=== PATIENT | male | born 1980 | race Caucasian/White ===

== ENCOUNTER 2017-06-20 20:35 | Emergency (ER) | payer OTHER ==
[~2017-06-20] VITALS: Ht 172.7 cm; Wt 82.3 kg
[2017-06-21 00:18] VITALS: BP 130/89
--- NOTE | 2017-06-21 14:52 | REP ---
Clinical: Trauma. Technique: AP, lateral, bilateral oblique views of the right fifth digit. Findings: Comminuted fracture of the fifth metacarpal bone with overlying soft tissue swelling. No other fracture dislocation. Impression: Comminuted fracture of the fifth metacarpal bone. Signed by Satya Ojeda MD 06/21/2017 02:44 P
== END 2017-06-21 00:19 | disposition home or self-care (01) ==
LOC: M ED 20:35
DX: S62.306A Unspecified fracture of fifth metacarpal bone, right hand, initial encounter for closed fracture (principal); Z72.0 Tobacco use; W01.198A Fall on same level from slipping, tripping and stumbling with subsequent striking against other object, initial encounter; Y92.099 Unspecified place in other non-institutional residence as the place of occurrence of the external cause; Y93.01 Activity, walking, marching and hiking; Y99.9 Unspecified external cause status

== ENCOUNTER 2017-07-20 15:18 | Day surgery (SDC) | payer OTHER ==
[~2017-07-20] VITALS: Ht 172.7 cm; Wt 83.2 kg
--- NOTE | 2017-07-20 18:02 | REP ---
Scrotal sonography: History: Trauma to the left testis 4 days ago in a fall on the log. Persistent pain. Findings: High-resolution bilateral scrotal sonography demonstrates a heterogeneous mixed echogenicity area of subtle deformity and swelling in the lower pole of the left testis. This area measures 2.6 x 0.9 x 1.8 cm. The appearance on sagittal images suggest the possibility of localized at rupture of the tunica albuginea, herniation of testicular parenchyma through the defect. The left testis measures 4.5 x 2.2 x 2.9 cm. Right testicular dimensions are 4.4 x 2.3 x 2.7 cm. Epididymi are normal in size. There is a 4 mm right epididymal cyst and a 5 mm right epididymal cyst. Testicular Doppler flow is normal bilaterally with resistive indices 0.57 and 0.56 on the right and left. No significant hydrocele collection. Impression: Findings suggestive of lower pole rupture left testis with hematoma and a defect in the tunica with herniation of testicular parenchyma. Signed by Sherman Varma MD 07/23/2017 06:48 P
[2017-07-20] MEDS ORDERED: ACET1TAB17 PO (18:34)
[2017-07-20] MEDS ORDERED: NICODIS TD (18:34)
[2017-07-20] MEDS: NS 1,000 ML IV SCH ×2 (18:44→21:59)
[2017-07-20 18:51] LABS: MEAN CORPUSCULAR HEMOGLOBIN 31.3 pg (27.0-33.0); MEAN CORPUSCULAR HGB CONC 34.8 g/dl (32.0-36.5); MEAN CORPUSCULAR VOLUME 89.8 fl (80.0-96.0); PLATELET COUNT, AUTOMATED 293 10^3/uL (150-450); RED CELL DISTRIBUTION WIDTH 12.2 % (11.5-14.5); WHITE BLOOD COUNT 13.6 10^3/uL (4.0-10.0)
[2017-07-20] MEDS ORDERED: BUPIVACAINE HCL 0.25% 30 ML VIAL As Ordered ONE (18:59)
[2017-07-20 19:10] LABS: ANION GAP 7 MEQ/L (8-16); BLOOD UREA NITROGEN 14 MG/DL (7-18); CALCIUM LEVEL 9.2 MG/DL (8.5-10.1); CARBON DIOXIDE LEVEL 31 MEQ/L (21-32); CHLORIDE LEVEL 103 MEQ/L (98-107); CREATININE FOR GFR 0.95 MG/DL (0.70-1.30); GLOMERULAR FILTRATION RATE > 60.0 (>60); GLUCOSE, FASTING 98 MG/DL (70-105); POTASSIUM SERUM 4.1 MEQ/L (3.5-5.1); SODIUM LEVEL 141 MEQ/L (136-145)
[2017-07-20] MEDS ORDERED: ceFAZolin 1GM INJ (J0690) As Ordered ONE (19:35)
[2017-07-20] MEDS ORDERED: PROPOFOL 200 MG/20 ML VIAL As Ordered ONE (19:55)
[2017-07-20] MEDS ORDERED: LIDOCAINE 2% INJ 100 MG/5 ML SDV (FOR ANES.) As Ordered ONE (19:55)
[2017-07-20] MEDS ORDERED: fentaNYL 250 MCG/5 ML INJECTION (J3010) As Ordered ONE (19:55)
[2017-07-20] MEDS ORDERED: MIDAZOLAM INJ 2 MG/2 ML VIAL (J2250) As Ordered ONE (19:55)
[2017-07-20] MEDS ORDERED: SUCCINYLCHOLINE 100 MG/5 ML SYRINGE (J0330) As Ordered ONE (19:55)
[2017-07-20] MEDS ORDERED: METOCLOPRAMIDE INJ 10MG/2ML VIAL (J2765) As Ordered ONE (19:55)
[2017-07-20] MEDS ORDERED: ROCURONIUM BROMIDE 50 MG/5 ML VIAL/SYRINGE As Ordered ONE (19:55)
[2017-07-20] MEDS ORDERED: NEOSTIGMINE 10 MG/10 ML VIAL (J2710) As Ordered ONE (20:11)
[2017-07-20] MEDS ORDERED: GLYCOPYRROLATE INJ 0.2 MG/ML 2 ML VIAL As Ordered ONE (20:11)
[2017-07-20] MEDS ORDERED: BACITRACIN PWD 50,000 UNITS VIAL As Ordered ONE (20:18)
[2017-07-20] MEDS ORDERED: LIDOCAINE 2% MDV 20 ML VIAL As Ordered ONE (20:25)
[2017-07-20] MEDS ORDERED: MEPERIDINE INJ 25 MG/ML VIAL (J2175) As Ordered ONE (20:51)
[2017-07-20] MEDS: MEPERIDINE INJ 25 MG/ML VIAL (J2175) IV PRN ×2 (20:52→20:57)
[2017-07-20] MEDS ORDERED: METOCLOPRAMIDE INJ 10MG/2ML VIAL (J2765) IV PRN (21:00)
[2017-07-20] MEDS ORDERED: MORPHINE 2 MG/ML 1ML SYRINGE IV PRN ×3 (21:00→23:45)
[2017-07-20] MEDS ORDERED: PERCOCET 5MG/325MG TAB PO PRN (21:00)
[2017-07-20] MEDS ORDERED: ONDANSETRON 4MG/2ML VIAL (J2405) IV PRN (21:00)
[2017-07-20] MEDS ORDERED: fentaNYL 100 MCG/2 ML INJECTION (J3010) IV PRN (21:00)
[2017-07-20] MEDS ORDERED: LR 1,000 ML IV SCH (21:00)
[2017-07-20 21:45] VITALS: BP 145/87
[2017-07-20 22:15] VITALS: BP 141/91
[2017-07-20 22:45] VITALS: BP 137/84
[2017-07-20 23:45] VITALS: BP 126/82
[2017-07-20] MEDS ORDERED: PERCOCET 5MG/325MG TAB PO ONE (23:45)
[2017-07-21] VITALS: BP 125/73
[2017-07-21 01:00] VITALS: BP 125/73
[2017-07-21 02:00] VITALS: BP 118/56
[2017-07-21 04:00] VITALS: BP 118/85
[2017-07-21] MEDS ORDERED: CIPROFLOXACIN 500 MG TAB PO SCH (06:00)
[2017-07-21] MEDS: PERCOCET 5MG/325MG TAB PO PRN ×2 (06:39→10:43)
[2017-07-21 08:00] VITALS: BP 132/75
[2017-07-21] MEDS ORDERED: OXYC1TAB23 PO (09:59)
[2017-07-21] MEDS ORDERED: CIPR-249 PO (09:59)
--- NOTE | 2017-07-21 16:05 | CR ---
DATE OF CONSULTATION: 07/20/2017 REASON FOR CONSULTATION: Ruptured left testicle HISTORY OF PRESENT ILLNESS: The patient is a 36-year-old gentleman who came through the emergency room with a 4-day history of severe left testicular pain. He was fishing, and he was straddling a tree, but he fell and had a straddle injury, injuring both testicles, but the left testicle continued to hurt. Originally the testicles were reportedly very bruised and purple looking. A scrotal ultrasound was done from the emergency room, and this clearly showed lower pole rupture of the left testicle with a hematoma and a defect in the tunica with herniation of testicular parenchyma. The right testicle was normal in size, and there was a 4 mm right epididymal cyst and a 5 mm right epididymal cyst. There was normal bilateral testicular Doppler flow on both sides. The patient does have a history of polycystic disease, which was diagnosed when he was 15 years of age. He is not followed often for this any longer. He says they followed it for years, and there was no real change in his cysts. He denies any history of gross hematuria, and he has had no difficulty urinating. He has no irritative or obstructive voiding symptoms. PAST MEDICAL HISTORY: Denies. PAST SURGICAL HISTORY: Double hernia repair at the age of 1. MEDICATIONS: Nicoderm patch [id number]. ALLERGIES: SULFA-BASED DRUGS cause a rash. SOCIAL HISTORY: He is . He has four children of his own and five with a second marriage. He smokes a half a pack of cigarettes a day, and he drinks two to three beers on weekend nights. FAMILY HISTORY: Noncontributory. PHYSICAL EXAMINATION: This a well-developed, well-nourished gentleman lying in a hospital bed in no apparent respiratory distress. He is alert and oriented times three. His maximal temperature is 99.3. His pulse is 93. His blood pressure is 134/82 with a respiratory rate of 18. His eyes are pupils equal, round, and reactive to light (PERRL) and extraocular muscles intact (EOMI). His neck is supple. He has no significant supraclavicular or cervical adenopathy. His heart has a regular rate and rhythm. His lungs are clear to auscultation and percussion. He has no costovertebral angle (CVA) tenderness. His abdomen is soft and nontender. On testicular exam, the scrotal sac actually appears quite normal without very significant swelling, hematoma, or erythema. On exam, though, the left testicle is extremely tender to touch, and one can feel the rupture in the lower pole. The right testicle feels completely normal. His extremities show no cyanosis, clubbing, or edema. LABORATORY DATA: His BUN is 14, and his creatinine is normal at 0.95. His white blood count is elevated at 13.6, and his hemoglobin and hematocrit are 15.7/45.1. DISCUSSION: I discussed these findings at length with the patient and his today, and it was decided to bring the patient emergently to the operating room. We discussed two case scenarios. The first was possibly debriding the area that was ruptured from the testicle and then trying to close the tunica and save part of the testicle. He understands, though, that this carries a much higher risk of postprocedural infection and bleeding, which may require further surgical management. The other option was if we need to debride too much or are unable to salvage the testicle, that we will perform a left orchiectomy. We discussed that usually having a unilateral testicle is enough for both testosterone production and also if he wants to have more children in the future. He was interested in a testicular prosthesis, but unfortunately, there are none available in the hospital at this time, so that would need to be done at a later date if we did end up doing an orchiectomy. At this point, all of his questions were answered and informed consent was obtained in both verbal and written form. We discussed the major risks of the procedure, which included, but were not limited to, the risks of general anesthesia, reactions to medication, bleeding, infection, and continued pain. IMPRESSION: 1. Left testicular rupture after a fall 4 days ago. 2. History of polycystic kidney disease with a normal BUN and creatinine. PLAN: The patient to go emergently to the operating room for a left scrotal exploration, possible left testicular debridement and repair, versus a left orchiectomy.
--- NOTE | 2017-07-22 12:58 | RO ---
DATE OF PROCEDURE: 07/20/2017 PREPROCEDURE DIAGNOSIS: Ruptured left cystic left testicle. POSTOPERATIVE DIAGNOSIS: Ruptured left cystic left testicle. PROCEDURE: Left scrotal exploration with testicular debridement. SURGEON: Dr. Steffanie Rdz. POLE SETTER: ANESTHESIA: General. MEDICATIONS: Ancef 2 grams preoperatively. DRAINS: 1 inch Shaquille. SPECIMEN: Testicular tissue. INDICATIONS FOR PROCEDURE: The patient is a 36-year-old gentleman who was fishing and he slipped and had a straddle injury on a log hurting mostly his left testicle. The pain continued to be extremely severe so he came to the emergency room. A scrotal ultrasound was done, which showed a left testicular rupture of the lower pole. After discussing all different options, alternatives, risks, and benefits it was decided to bring the patient to the operating room for a scrotal exploration with possible debridement and repair versus orchiectomy depending on the findings. Informed consent was obtained in both verbal and written form. He understood clearly that if repair was done that he could continue to have severe pain, possibility of infection, and risk of hematoma postoperatively, all which could require another trip to the operating room in the future. His feeling was he would prefer to have his testicles spared if possible. He was also interested in a testicular implant if we had to do an orchiectomy, but unfortunately there was no implant available. DESCRIPTION OF PROCEDURE: The patient was brought into the operating room. Sequential compression devices were in place and preoperative antibiotics have been given. General anesthesia was induced. He was in the supine position and he was prepped and draped in the usual fashion. Next, an incision was made over the left hemiscrotum, through dartos fascia, and then through the tunica. Underneath the tunica there was some free blood and fluid and the lower pole of the testicle had a complete rupture of the tunica albuginea with testicular tissue protruding. At this point, I was able to debride the extruded testicular tissue and the rest of the testicle actually looked quite normal. I was unable to bring the tunica back together again but there was no continuous bleeding. There was a hematoma, which was drained and hemostasis was obtained using a Bovie and a few sutures. At this point, copious antibiotic irrigation was done and the testicle was placed back in its sac in its normal position with a dependent Shaquille 1 inch drain. The tunica vaginalis was then closed using a #2-0 chromic suture and then dartos fascia was closed. The skin was also closed using #2-0 chromic suture. A block was done of the left scrotum using 10 mL of 1% lidocaine. The patient tolerated the procedure well and was returned to the recovery room in stable condition.
== END 2017-07-21 11:00 | disposition home or self-care (01) ==
LOC: M ED 15:18 → M OROP 18:37 → M PED 21:40 → M OROP 07-21 11:00
PROVIDERS: ATTEND Specialist
DX: N44.2 Benign cyst of testis (principal); Z88.2 Allergy status to sulfonamides; Z72.0 Tobacco use
CPT/HCPCS: 54700; 76870; 80048; 85027; 85610; 88305; 93976; 96374; 96376; 99284; J0330; J0690; J2175; J2250; J2710; J2765; J3010

== ENCOUNTER → 2017-08-23 | Outpatient (CLI) | payer OTHER ==
[~2017-08-23] MED LIST: ACET1TAB17 PO; CIPR-249 PO; NICODIS TD; OXYC1TAB23 PO
--- NOTE | 2017-08-23 16:50 | REP ---
SCROTAL ULTRASOUND: Real-time sonographic evaluation of the scrotum and contents performed and compared to prior study of 07/20/2017. Right testicle measures 4.7 x 2.2 x 2.9 cm and left testicle 4.0 x 2.2 x 2.9 cm. There is blood flow seen in each testicle with duplex Doppler evaluation, with no torsion, RI right testicle 0.64 and left testicle 0.57. A couple of cysts are seen in the head of each epididymis, the largest on the right is 5 mm in diameter and the largest on the left demonstrates internal septations measuring 7 mm maximally. Both testicles are homogeneous. There is no evidence of intratesticular hematoma with resolution of the previously noted left testicular hematoma. A couple of tiny calcifications are seen in the left testicle. Left epididymis demonstrates some enlargement in the region of the tail without significant increased blood flow, which may represent resolving posttraumatic change. IMPRESSION: Previously noted left testicular hematoma appears to have resolved with no intratesticular abnormality at this time. Mild enlargement of the tail of the left epididymis may represent resolving posttraumatic change. Small cysts in the head of each epididymis. Signed by Govind Black MD 08/24/2017 04:54 P
== END ==
LOC: M RAD 14:27
PROVIDERS: ATTEND Specialist
DX: S39.94XD Unspecified injury of external genitals, subsequent encounter (principal); X58.XXXD Exposure to other specified factors, subsequent encounter; Y99.8 Other external cause status

== ENCOUNTER 2017-09-07 04:16 | Emergency (ER) | payer OTHER ==
[2017-09-07] MEDS: ONDANSETRON 4 MG ORAL DISINTEGRATING TAB (S0181) PO (04:44)
[2017-09-07] MEDS: MORPHINE 4 MG/ML 1ML SYRINGE SC (04:44)
[2017-09-07] MEDS: NORCO 5/325MG TABLET (BULK FOR ED) PO (07:15)
== END 2017-09-07 07:19 | disposition home or self-care (01) ==
LOC: M ED 04:16
DX: S82.844A Nondisplaced bimalleolar fracture of right lower leg, initial encounter for closed fracture (principal); W00.0XXA Fall on same level due to ice and snow, initial encounter; Y92.018 Other place in single-family (private) house as the place of occurrence of the external cause; Y93.89 Activity, other specified; Y99.8 Other external cause status; Z88.1 Allergy status to other antibiotic agents; Z88.2 Allergy status to sulfonamides
CPT/HCPCS: 73590

== ENCOUNTER 2017-09-12 08:45 | Day surgery (SDC) | payer OTHER ==
[2017-09-12] MEDS ORDERED: EPINEPHrine INJ 1 MG/ML 1ML AMP (08:46)
[2017-09-12] MEDS ORDERED: ROPIvacaine 0.5% 30 ML INJECTION (J2795 PER 1MG) (08:46)
[2017-09-12] MEDS: LR 1,000 ML IV (09:39)
[2017-09-12] MEDS ORDERED: MIDAZOLAM INJ 2 MG/2 ML VIAL (J2250) As Ordered ×3 (09:45→10:27)
[2017-09-12] MEDS ORDERED: fentaNYL 100 MCG/2 ML INJECTION (J3010) As Ordered (09:45)
[2017-09-12] MEDS: MIDAZOLAM INJ 2 MG/2 ML VIAL (J2250) IV (10:03)
[2017-09-12] MEDS: fentaNYL 100 MCG/2 ML INJECTION (J3010) IV ×3 (10:03→12:37)
[2017-09-12] MEDS ORDERED: fentaNYL 250 MCG/5 ML INJECTION (J3010) As Ordered (10:27)
[2017-09-12] MEDS ORDERED: PROPOFOL 200 MG/20 ML VIAL As Ordered ×2 (10:27→11:11)
[2017-09-12] MEDS ORDERED: LIDOCAINE 2% INJ 100 MG/5 ML SDV (FOR ANES.) As Ordered (10:27)
[2017-09-12] MEDS: ceFAZolin 1GM INJ (J0690 PER 500MG) As Ordered (11:05)
[2017-09-12] MEDS ORDERED: KETOROLAC 60 MG/2 ML VIAL (J1885) As Ordered (11:12)
[2017-09-12] MEDS ORDERED: ONDANSETRON 4MG/2ML VIAL (J2405) As Ordered (11:12)
[2017-09-12] MEDS ORDERED: dexameTHASONE 4 MG/ML 1ML VIAL (J1100) As Ordered (11:12)
[2017-09-12] MEDS ORDERED: MEPERIDINE INJ 25 MG/ML VIAL (J2175) As Ordered (11:57)
[2017-09-12] MEDS: MEPERIDINE INJ 25 MG/ML VIAL (J2175) IV ×2 (12:02→12:07)
[2017-09-12] MEDS ORDERED: ONDANSETRON 4MG/2ML VIAL (J2405) IV (12:30)
[2017-09-12] MEDS ORDERED: MORPHINE 10 MG/ML 1ML VIAL IV (12:30)
[2017-09-12] MEDS ORDERED: NORCO, ANEXSIA 5/325MG TABLET (HYDROcodone/ACETAMINOPHEN) PO ×2 (12:30)
[2017-09-12] MEDS ORDERED: MORPHINE 4 MG/ML 1ML SYRINGE IV (12:30)
[2017-09-12] MEDS ORDERED: LR 1,000 ML IV ×2 (12:30)
[2017-09-12] MEDS: PERCOCET 5MG/325MG TAB PO (12:41)
== END 2017-09-12 13:50 | disposition home or self-care (01) ==
LOC: M SDC 08:45
DX: S82.841A Displaced bimalleolar fracture of right lower leg, initial encounter for closed fracture (principal); X58.XXXA Exposure to other specified factors, initial encounter; Y92.89 Other specified places as the place of occurrence of the external cause; Y93.89 Activity, other specified; Y99.8 Other external cause status; K59.00 Constipation, unspecified; K21.9 Gastro-esophageal reflux disease without esophagitis; M12.9 Arthropathy, unspecified; F41.9 Anxiety disorder, unspecified; F43.10 Post-traumatic stress disorder, unspecified; Q61.3 Polycystic kidney, unspecified; Z88.2 Allergy status to sulfonamides; Z86.14 Personal history of Methicillin resistant Staphylococcus aureus infection; Z72.0 Tobacco use
CPT/HCPCS: 27814

== ENCOUNTER 2017-09-23 00:05 | Emergency (ER) | payer OTHER ==
[2017-09-23 00:39] LABS: HEMATOCRIT 40.2 % (42.0-52.0); HEMOGLOBIN 13.8 g/dl (14.0-18.0); MEAN CORPUSCULAR HEMOGLOBIN 31.7 pg (27.0-33.0); MEAN CORPUSCULAR HGB CONC 34.3 g/dl (32.0-36.5); MEAN CORPUSCULAR VOLUME 92.2 fl (80.0-96.0); PLATELET COUNT, AUTOMATED 319 10^3/uL (150-450); RED BLOOD COUNT 4.36 10^6/uL (4.30-6.10); WHITE BLOOD COUNT 12.7 10^3/uL (4.0-10.0)
[2017-09-23] MEDS: NICOTINE 21MG/24HR 1 EA TRANSDERMAL TD (00:55)
[2017-09-23 01:10] LABS: ACETAMINOPHEN LEVEL 44.8 UG/ML (10.0-30.0); ALBUMIN 3.6 GM/DL (3.2-5.2); ALBUMIN/GLOBULIN RATIO 1.16 (1.00-1.93); ALKALINE PHOSPHATASE 96 U/L (45-117); ALT/SGPT 30 U/L (12-78); ANION GAP 11 MEQ/L (8-16); AST/SGOT 15 U/L (7-37); BILIRUBIN,DIRECT < 0.1 MG/DL (0.0-0.2); BILIRUBIN,TOTAL 0.3 MG/DL (0.2-1.0); BLOOD UREA NITROGEN 11 MG/DL (7-18); CALCIUM LEVEL 8.1 MG/DL (8.5-10.1); CARBON DIOXIDE LEVEL 25 MEQ/L (21-32); CHLORIDE LEVEL 105 MEQ/L (98-107); CPK CREATINE PHOSPHOKINASE 96 U/L (39-308); CREATININE FOR GFR 0.86 MG/DL (0.70-1.30); ETHYL ALCOHOL (ETHANOL) 0.163 % (0.000-0.010); GLOMERULAR FILTRATION RATE > 60.0 (>60); GLUCOSE, FASTING 114 MG/DL (70-105); SALICYLATE LEVEL 2.9 MG/DL (5.0-30.0); SODIUM LEVEL 141 MEQ/L (136-145); THYROID STIMULATING HORMONE 0.608 uIU/ML (0.358-3.740); TOTAL PROTEIN 6.7 GM/DL (6.4-8.2)
== END 2017-09-23 05:31 | disposition home or self-care (01) ==
LOC: M ED 05:31
DX: F10.220 Alcohol dependence with intoxication, uncomplicated (principal); Y90.0 Blood alcohol level of less than 20 mg/100 ml; Z60.9 Problem related to social environment, unspecified; Z88.1 Allergy status to other antibiotic agents; Z88.2 Allergy status to sulfonamides; F17.210 Nicotine dependence, cigarettes, uncomplicated
CPT/HCPCS: G0480